=== PATIENT | female | born 1970 | race Caucasian/White ===

== ENCOUNTER 2022-09-01 12:39 | Outpatient (CLI) | payer OTHER, SELFPAY ==
--- NOTE | 2022-09-01 | ECG_ITS ---
[facility] Test Date: 2022-09-01 Pat Name: Alethea Maldonado Department: Room: Gender: Female [employer] Operator: Estela Vazquez : 1970 Requested By: Federica Floyd Order Number: [id number] Noel MD: Federica Floyd M.D. Interpretive Statements NAME OF STUDY: TREADMILL STRESS TEST INDICATION: Chest Pain PROCEDURE: At the baseline, the patient's blood pressure was with a heart rate of. The baseline electrocardiogram showed normal sinus rhythm with normal ST-Ts. Poor operative perfusion. The patient exercised for 4 minutes and 59 seconds on a standard Jim protocol. Patient attained a maximum heart rate of 144 beats per minute(86% of the maximum predicted heart rate) with a blood pressure at the peak exercise of 199/102 mm Hg. The EKG at the peak exercise revealed no significant changes. Patient did not have any chest pain or any significant cardiac arrhythmias with the exercise During the recovery phase, there were no new changes. Blood pressure at the end of the recovery phase was 142/92 mm Hg with a heart rate of 98 per minute. CONCLUSION: 1. No significant EKG changes with the treadmill exercise 2. No exercise-induced chest pain or cardiac arrhythmia 3. Impaired exercise tolerance, attained a maximum of 7.0 METs Electronically Signed On 09-05-2022 23:29:10 CDT by Federica Floyd M.D. [email or web address]
[2022-09-01 13:01] VITALS: BMI 29.2
[2022-09-01 13:34] VITALS: BP 142/92; PULSE 103
== END 2022-09-01 12:40 | disposition home or self-care (01) ==
PROVIDERS: PCP Nurse Practitioner Family; Visit Provider Internal Medicine Cardiovascular Disease
DX: R07.9 Chest pain, unspecified (principal)
CPT/HCPCS: 93017

== ENCOUNTER 2022-09-08 10:54 | Outpatient (CLI) | payer OTHER, SELFPAY ==
--- NOTE | 2022-09-08 11:15 | USCV_ITS ---
Alethea Maldonado Age: 52 Gender: F : 1970 Exam Date: 09/08/2022 11:54 Ordering Phys: Federica Floyd MD ([email or web address]) Technologist: Susan Fabian Exam Location: [facility] [place] Indication: sob, cp BP: 119 / 101 HR: 70 Rhythm: Sinus Technical Quality: Adequate MEASUREMENTS (Male / Female) Normal Values 2D ECHO LV Diastolic Diameter PLAX 3.9 cm 4.2 - 5.9 / 3.9 - 5.3 cm LV Systolic Diameter PLAX 2.4 cm IVS Diastolic Thickness 1.4 cm 0.6 - 1.0 / 0.6 - 0.9 cm IVS Systolic Thickness 1.5 cm LVPW Diastolic Thickness 1.1 cm 0.6 - 1.0 / 0.6 - 0.9 cm LVPW Systolic Thickness 1.6 cm LVOT Diameter 2.0 cm LV Ejection Fraction 2D Teich 70.0 % LV Ejection Fraction MOD 2C 69.5 % LV Ejection Fraction 2C AL 68.2 % LA Diameter 2.1 cm LA Width 3.4 cm LA Height 4.1 cm RA Width 2.9 cm RA Height 3.3 cm Aorta at Sinotubular Diameter 3.0 cm IVC Diameter 1.3 cm M-MODE MV E Point Septal Separation 0.3 cm DOPPLER MV Peak Velocity 115.0 cm/s MV Area PHT 2.9 cm squared Mitral E to A Ratio 0.7 MV E' Velocity 46.0 cm/s Mitral E to MV E' Ratio 12.5 Mitral E to LV E' Lateral Ratio 12.0 Mitral E to LV E' Septal Ratio 13.1 TR Peak Velocity 72.0 cm/s TR Peak Gradient 2.1 mmHg Right Atrial Pressure 3.0 mmHg Pulmonary Artery Systolic Pressu 5.1 mmHg PV Peak Velocity 73.0 cm/s RV Acceleration Time 0.2 s RV Ejection Time 0.3 s RV AcT/ET 0.5 FINDINGS Left Ventricle Normal left ventricular size and systolic function, EF 71 %. No regional wall motion abnormalities. Mild left ventricular hypertrophy. Grade I/IV diastolic dysfunction (abnormal relaxation filling pattern), normal to mildly elevated filling pressures. Right Ventricle Normal right ventricular size and systolic function. Right Atrium The right atrium is normal in size. Left Atrium The left atrium is normal in size. Mitral Valve No gross abnormalities noted Aortic Valve No gross abnormalities noted Tricuspid Valve No gross abnormalities noted Pulmonic Valve Pulmonic valve not well visualized. Pericardium No pericardial effusion. Aorta Normal ascending aorta dimension. IVC The inferior vena cava appears normal. CONCLUSIONS Normal left ventricular size and systolic function, EF 71 %. No regional wall motion abnormalities. Mild left ventricular hypertrophy. Grade I/IV diastolic dysfunction (abnormal relaxation filling pattern), normal to mildly elevated filling pressures. Normal cardiac chamber sizes No significant valvular lesions There is no pericardial effusion. There are no intracardiac masses. No similar previous studies are available for comparison Dr Federica Floyd MD FAC (Electronically Signed) Final Date: 11 September 2022 14:13 S
== END 2022-09-08 10:55 | disposition home or self-care (01) ==
PROVIDERS: PCP Nurse Practitioner Family; Visit Provider Internal Medicine Cardiovascular Disease
DX: R06.09 Other forms of dyspnea (principal)
CPT/HCPCS: 93306

== ENCOUNTER → 2025-05-28 13:31 | Outpatient (BNVA) | payer OTHER, SELFPAY | PROVIDERS: PCP Nurse Practitioner Family; Visit Provider Podiatrist Foot & Ankle Surgery | DX: M21.611 Bunion of right foot (principal); M20.21 Hallux rigidus, right foot | CPT/HCPCS: 73630 ==